=== PATIENT | female | born 1945 | race Caucasian/White ===

== ENCOUNTER 2021-04-18 09:45 | Inpatient (IN) | payer MEDICARE, MEDICAID ==
[2021-04-18] MEDS ORDERED: cefTRIAXone 1 GM in Sodium Chloride 0.9% 100 ML IV ONE (10:10)
[2021-04-18] MEDS ORDERED: Dextrose 5%-0.9% NaCl 1,000 ML IV SCH (10:15)
[2021-04-18] MEDS ORDERED: Ondansetron 4 MG Tab.DIS PO PRN (15:15)
[2021-04-18] MEDS: Acetaminophen 325 MG Tab PO PRN (16:55)
[2021-04-18] MEDS: Sodium Chloride 0.9% 1,000 ML IV SCH (17:00)
[2021-04-18] MEDS: LORazepam 1 MG Tab PO PRN (20:55)
[2021-04-19] MEDS: Acetaminophen 325 MG Tab PO PRN ×4 (02:43→21:12)
[2021-04-19] MEDS: Levothyroxine 50 MCG Tab PO SCH (05:01)
[2021-04-19] MEDS: Sodium Chloride 0.9% 1,000 ML IV SCH (05:48)
[2021-04-19] MEDS ORDERED: Potassium Chloride 20 MEQ Tab.ER PO ONE (06:18)
[2021-04-19] MEDS ORDERED: Enoxaparin 30 MG/0.3 ML Syringe SUBCUT SCH (09:00)
[2021-04-19] MEDS ORDERED: Enoxaparin 40 MG/0.4 ML Syringe SUBCUT SCH (09:00)
[2021-04-19] MEDS: Lisinopril 20 MG Tab PO SCH (09:12)
[2021-04-19] MEDS: Thiamine 100 MG Tab PO SCH (09:15)
[2021-04-19] MEDS: cefTRIAXone 2 GM in Sodium Chloride 0.9% 100 ML IV SCH (09:15)
[2021-04-19] MEDS ORDERED: Magnesium Sulfate/Water 2 GM in Premix Bag 1 BAG IV ONE (10:30)
[2021-04-19] MEDS: Calcium Carbonate/Vitamin D3 600 MG-200 Units Tab PO SCH ×2 (11:32→16:41)
[2021-04-19] MEDS: LORazepam 1 MG Tab PO PRN (21:12)
[2021-04-20] MEDS: Acetaminophen 325 MG Tab PO PRN ×5 (02:35→20:37)
[2021-04-20] MEDS: Levothyroxine 50 MCG Tab PO SCH (05:16)
[2021-04-20] MEDS: Calcium Carbonate/Vitamin D3 600 MG-200 Units Tab PO SCH ×2 (06:20→17:02)
[2021-04-20] MEDS: Lisinopril 20 MG Tab PO SCH (08:24)
[2021-04-20] MEDS: Thiamine 100 MG Tab PO SCH (08:24)
[2021-04-20] MEDS: cefTRIAXone 2 GM in Sodium Chloride 0.9% 100 ML IV SCH (09:46)
[2021-04-20] MEDS: Lidocaine 4% 1 each Patch TOP SCH (12:03)
[2021-04-20] MEDS ORDERED: oxyCODONE 5 MG Tab PO PRN (16:50)
[2021-04-20] MEDS: LORazepam 1 MG Tab PO PRN (20:38)
[2021-04-21] MEDS: Acetaminophen 325 MG Tab PO PRN ×2 (03:31→09:35)
[2021-04-21] MEDS: Levothyroxine 50 MCG Tab PO SCH (05:52)
[2021-04-21] MEDS: Calcium Carbonate/Vitamin D3 600 MG-200 Units Tab PO SCH (07:39)
[2021-04-21] MEDS: Lisinopril 20 MG Tab PO SCH (09:33)
[2021-04-21] MEDS: cefTRIAXone 2 GM in Sodium Chloride 0.9% 100 ML IV SCH (09:35)
[2021-04-21] MEDS: Thiamine 100 MG Tab PO SCH (09:35)
[2021-04-21] MEDS: Lidocaine 4% 1 each Patch TOP SCH (12:16)
== END 2021-04-21 13:32 | disposition home or self-care (01) | DRG 644 ==
LOC: JD.ED 09:45 → SUPCPDRO 09:45 → JD.MS 12:41
PROVIDERS: ADMIT Internal Medicine; ATTEND Internal Medicine
DX: E87.1 Hypo-osmolality and hyponatremia (principal); E22.2 Syndrome of inappropriate secretion of antidiuretic hormone; D70.1 Agranulocytosis secondary to cancer chemotherapy; D69.6 Thrombocytopenia, unspecified; N39.0 Urinary tract infection, site not specified; I50.32 Chronic diastolic (congestive) heart failure; D64.9 Anemia, unspecified; R31.9 Hematuria, unspecified; Z91.81 History of falling; B96.20 Unspecified Escherichia coli [E. coli] as the cause of diseases classified elsewhere; E83.51 Hypocalcemia; E03.9 Hypothyroidism, unspecified; I25.10 Atherosclerotic heart disease of native coronary artery without angina pectoris; I11.0 Hypertensive heart disease with heart failure; G89.29 Other chronic pain; M54.9 Dorsalgia, unspecified; D72.819 Decreased white blood cell count, unspecified; R63.4 Abnormal weight loss; F51.04 Psychophysiologic insomnia; Z20.822 Contact with and (suspected) exposure to COVID-19; M19.90 Unspecified osteoarthritis, unspecified site; Z90.11 Acquired absence of right breast and nipple; M81.0 Age-related osteoporosis without current pathological fracture; G47.00 Insomnia, unspecified; Z92.21 Personal history of antineoplastic chemotherapy; Z85.3 Personal history of malignant neoplasm of breast; Z79.890 Hormone replacement therapy; Z79.899 Other long term (current) drug therapy; Z87.440 Personal history of urinary (tract) infections; R79.89 Other specified abnormal findings of blood chemistry; Z68.21 Body mass index [BMI] 21.0-21.9, adult
CPT/HCPCS: 36415; 71045; 80053; 81001; 83735; 83880; 83930; 83935; 84300; 85025; 86140; 87086; 96365; 99285; J0696; J7042; 51701; 51798; 74176; 74176-26; 80048; 84295; 85027; 86850; 86900; 86901; 97116-GP; 97162-GP; 97530-GP; A9270-GY; J3475; J7030; U0002

== ENCOUNTER 2022-06-12 09:37 | Emergency (ER) | payer MEDICARE, MEDICAID ==
[2022-06-12] MEDS ORDERED: cefTRIAXone 1 GM in Sodium Chloride 0.9% 100 ML IV ONE (14:40)
[2022-06-12] MEDS ORDERED: Sodium Chloride 0.9% 1,000 ML IV SCH (14:45)
== END 2022-06-12 15:53 | disposition home or self-care (01) ==
LOC: JD.ED 09:37
DX: N39.0 Urinary tract infection, site not specified (principal); I10 Essential (primary) hypertension; I25.10 Atherosclerotic heart disease of native coronary artery without angina pectoris; E03.9 Hypothyroidism, unspecified; Z79.899 Other long term (current) drug therapy; Z77.22 Contact with and (suspected) exposure to environmental tobacco smoke (acute) (chronic)
CPT/HCPCS: 36415; 80053; 81001; 85025; 87086; 96365; 99283; J0696; J3490; J7030